=== PATIENT | female | born 1975 | race African-American/Black ===

== ENCOUNTER 2021-01-06 09:55 | Inpatient (IN) ==
[2021-01-06 11:24] LABS: Basophils % 0.2 % (0.0-0.8); Eosinophils # 0.1 10*3/uL (0.0-0.87); Eosinophils % 0.4 % (0.00-10.9); Hematocrit 39.5 VOL% (35.7-47.0); Hemoglobin 12.7 GM/DL (12.0-16.0); Immature Granulocytes % 0.4 %; Immature Granulocytes Absolute 0.08 #; Lymphocytes # 2.7 10*3/uL (1.4-4.0); Lymphocytes % 14.4 % (21.3-54.2); Mean Corpuscular HGB Conc 32.2 GM/DL (32-36); Mean Corpuscular Volume 90.8 FL (87-102); Mean Platelet Volume 10.7 FL (9.6-12.0); Monocytes % 8.1 % (1.7-12.7); Neutrophils % 76.5 % (38.7-73.9); Platelet Count 285 T/CUMM (130-400); Red Blood Count 4.35 MC/CUMM (3.8-5.5); Red Cell Distribution Width 17.3 % (9.3-17.3); White Blood Count 19.1 T/CUMM (4-12)
[2021-01-06 11:45] LABS: Bilirubin,Urine Negative (Negative); Blood, Urine Negative (Negative); Glucose,Urine (UA) 50 mg/dL (Negative); Ketones,Urine Negative (Negative); Mucus,Urine Many /LPF (Occasional); Nitrite,Urine Negative (Negative); Protein,Urine 100 MG/DL; RBC,Urine 1 /HPF (0-4); Squamous Epithelial Cell,Urine Occasional /HPF (0-10); Urine Appearance CLEAR (Clear); Urine Color Amber (Yellow); Urine Specific Gravity 1.028 (1.001-1.035)
[2021-01-06 11:45] LABS: Alanine Aminotransferase 29 U/L (13-56); Alkaline Phosphatase 165 U/L (45-117); Aspartate Amino Transferase 19 U/L (0-37); Blood Urea Nitrogen 6 MG/DL (7-18); Calcium 9.1 MG/DL (8.5-10.1); Carbon Dioxide 26 MMOL/L (21-32); Estimated Glom Filtration Rate 159 ML/MIN; Glucose 175 MG/DL (74-106); Potassium 3.9 MMOL/L (3.5-5.1); Sodium 136 MMOL/L (136-145); Total Protein 8.1 G/DL (6.4-8.2)
[2021-01-06] MEDS ORDERED: SODIUM CHLORIDE 0.9% 1,000 ML IV STA (11:55)
[2021-01-06] MEDS ORDERED: VANCOMYCIN INJ 1,000 MG in SODIUM CHLORIDE 0.9% 250 ML IV STA (11:57)
[2021-01-06] MEDS ORDERED: DEXTROSE 50% 25 GM/50 ML VIAL IV PRN ×2 (12:36)
[2021-01-06] MEDS ORDERED: GLUCAGON 1 MG VIAL IM PRN (12:36)
[2021-01-06] MEDS ORDERED: hydrALAZINE 20 MG/1 ML VIAL IV PRN (12:36)
[2021-01-06] MEDS ORDERED: ONDANSETRON 4 MG/2 ML VIAL IV PRN (12:36)
[2021-01-06] MEDS ORDERED: NICOTINE 21 MG/24 HR PATCH TRANSDERM PRN (13:34)
[2021-01-06] MEDS: INSULIN LISPRO 100 UNIT/ML SUBCUT SCH ×2 (17:04→20:58)
[2021-01-06] MEDS: SODIUM HYPOCHLORITE 0.25% IRRIG 473 ML BOTTLE TOP SCH (17:04)
[2021-01-06] MEDS: VANCOMYCIN INJ 1,500 MG in SODIUM CHLORIDE 0.9% 500 ML IV SCH (22:56)
[2021-01-07] MEDS ORDERED: VANCOMYCIN INJ 1,000 MG in SODIUM CHLORIDE 0.9% 250 ML IV SCH (00:01)
[2021-01-07 05:04] LABS: Basophils % 0.2 % (0.0-0.8); Eosinophils # 0.2 10*3/uL (0.0-0.87); Eosinophils % 1.4 % (0.00-10.9); Hematocrit 34.2 VOL% (35.7-47.0); Hemoglobin 11.2 GM/DL (12.0-16.0); Immature Granulocytes % 0.3 %; Immature Granulocytes Absolute 0.04 #; Lymphocytes # 2.9 10*3/uL (1.4-4.0); Lymphocytes % 22.5 % (21.3-54.2); Mean Corpuscular HGB Conc 32.7 GM/DL (32-36); Mean Corpuscular Volume 90.2 FL (87-102); Mean Platelet Volume 10.8 FL (9.6-12.0); Monocytes % 9.2 % (1.7-12.7); Neutrophils % 66.4 % (38.7-73.9); Platelet Count 248 T/CUMM (130-400); Red Blood Count 3.79 MC/CUMM (3.8-5.5); Red Cell Distribution Width 17.4 % (9.3-17.3); White Blood Count 12.9 T/CUMM (4-12)
[2021-01-07 05:25] LABS: Calcium 8.1 MG/DL (8.5-10.1); Potassium 3.6 MMOL/L (3.5-5.1)
[2021-01-07] MEDS: INSULIN LISPRO 100 UNIT/ML SUBCUT SCH ×4 (09:48→20:22)
[2021-01-07] MEDS: SODIUM HYPOCHLORITE 0.25% IRRIG 473 ML BOTTLE TOP SCH (09:49)
[2021-01-07] MEDS: PANTOPRAZOLE 40 MG TABLET PO SCH (09:49)
[2021-01-07] MEDS ORDERED: LACTATED RINGERS 1,000 ML IV SCH (10:00)
[2021-01-07] MEDS ORDERED: fentaNYL 100 MCG/2 ML VIAL ONE (10:09)
[2021-01-07] MEDS ORDERED: MIDAZOLAM 2 MG/2 ML VIAL ONE (10:09)
[2021-01-07] MEDS ORDERED: propofoL 200 MG/20 ML VIAL IV ONE (10:10)
[2021-01-07] MEDS ORDERED: LIDOCAINE 2% 5 ML VIAL ONE (10:10)
[2021-01-07] MEDS ORDERED: BUPIVACAINE MPF 0.25% 30 ML VIAL ONE (10:23)
[2021-01-07] MEDS ORDERED: LIDOCAINE 1% 20 ML VIAL ONE (10:23)
[2021-01-07] MEDS ORDERED: ETOMIDATE 40 MG/20 ML VIAL IV ONE (10:33)
[2021-01-07] MEDS ORDERED: ONDANSETRON 4 MG/2 ML VIAL ONE (10:59)
[2021-01-07] MEDS: VANCOMYCIN INJ 1,500 MG in SODIUM CHLORIDE 0.9% 500 ML IV SCH ×2 (12:05→18:54)
[2021-01-07] MEDS ORDERED: DEXTROSE 50% 25 GM/50 ML VIAL IV PRN (12:47)
[2021-01-07] MEDS ORDERED: GLUCAGON 1 MG VIAL IM PRN (12:47)
[2021-01-08] MEDS: VANCOMYCIN INJ 1,500 MG in SODIUM CHLORIDE 0.9% 500 ML IV SCH (06:17)
[2021-01-08 07:08] LABS: Basophils % 0.2 % (0.0-0.8); Eosinophils # 0.1 10*3/uL (0.0-0.87); Eosinophils % 1.1 % (0.00-10.9); Hematocrit 34.1 VOL% (35.7-47.0); Hemoglobin 10.8 GM/DL (12.0-16.0); Immature Granulocytes % 0.4 %; Immature Granulocytes Absolute 0.05 #; Lymphocytes # 2.7 10*3/uL (1.4-4.0); Lymphocytes % 20.9 % (21.3-54.2); Mean Corpuscular HGB Conc 31.7 GM/DL (32-36); Mean Corpuscular Volume 90.9 FL (87-102); Mean Platelet Volume 11.6 FL (9.6-12.0); Neutrophils % 68.4 % (38.7-73.9); Platelet Count 260 T/CUMM (130-400); Red Blood Count 3.75 MC/CUMM (3.8-5.5); Red Cell Distribution Width 17.2 % (9.3-17.3)
[2021-01-08 07:15] LABS: Calcium 8.4 MG/DL (8.5-10.1); Osmolality,Calculated 273.1 MOS/KG (273-304); Potassium 3.8 MMOL/L (3.5-5.1)
[2021-01-08] MEDS: PANTOPRAZOLE 40 MG TABLET PO SCH (08:53)
[2021-01-08] MEDS: INSULIN LISPRO 100 UNIT/ML SUBCUT SCH ×2 (08:53→12:18)
[2021-01-08] MEDS ORDERED: METOPROLOL SUCCINATE XL 50 MG TABLET PO SCH (09:00)
[2021-01-08] MEDS ORDERED: predniSONE 5 MG TABLET PO SCH (09:00)
[2021-01-08] MEDS ORDERED: FOLIC ACID 1 MG TABLET PO SCH (09:00)
[2021-01-08] MEDS: SODIUM HYPOCHLORITE 0.25% IRRIG 473 ML BOTTLE TOP SCH (10:48)
[2021-01-08 12:12] VITALS: BP 121/85
== END 2021-01-08 15:52 | disposition home or self-care (01) | DRG 197 ==
LOC: N.ED 09:55 → SUATTDRO 12:36 → N.EDINP 12:36 → N.3E 14:31
PROVIDERS: ADMIT Internal Medicine; ATTEND Internal Medicine

== ENCOUNTER 2021-02-17 13:07 | Inpatient (IN) ==
[2021-02-17] MEDS ORDERED: VANCOMYCIN INJ 1,000 MG in SODIUM CHLORIDE 0.9% 500 ML IV SCH (16:09)
[2021-02-17] MEDS ORDERED: ACETAMINOPHEN 325 MG TABLET PO PRN (16:09)
[2021-02-17] MEDS ORDERED: PROMETHAZINE 25 MG/1 ML VIAL IM PRN (16:09)
[2021-02-17] MEDS ORDERED: ONDANSETRON 4 MG/2 ML VIAL IV PRN (16:09)
[2021-02-17 16:46] LABS: Basophils # 0.1 10*3/uL (0.0-0.2); Basophils % 0.3 % (0.0-0.8); Eosinophils # 0.1 10*3/uL (0.0-0.87); Eosinophils % 0.7 % (0.00-10.9); Hematocrit 33.2 VOL% (35.7-47.0); Hemoglobin 10.4 GM/DL (12.0-16.0); Immature Granulocytes % 0.6 %; Immature Granulocytes Absolute 0.09 #; Lymphocytes # 3.1 10*3/uL (1.4-4.0); Mean Corpuscular HGB Conc 31.3 GM/DL (32-36); Mean Corpuscular Volume 88.8 FL (87-102); Mean Platelet Volume 9.9 FL (9.6-12.0); Monocytes % 6.9 % (1.7-12.7); Neutrophils % 72.5 % (38.7-73.9); Platelet Count 377 T/CUMM (130-400); Red Blood Count 3.74 MC/CUMM (3.8-5.5); Red Cell Distribution Width 16.7 % (9.3-17.3); White Blood Count 16.3 T/CUMM (4-12)
[2021-02-17 17:05] LABS: Calcium 8.7 MG/DL (8.5-10.1); Osmolality,Calculated 270.1 MOS/KG (273-304); Potassium 3.5 MMOL/L (3.5-5.1)
[2021-02-17] MEDS: LACTATED RINGERS 1,000 ML IV SCH (18:22)
[2021-02-17] MEDS: PIPERACILLIN/TAZOBACTAM 3,375 MG in SODIUM CHLORIDE 0.9% 100 ML IV SCH (18:27)
[2021-02-17] MEDS: VANCOMYCIN INJ 1,250 MG in SODIUM CHLORIDE 0.9% 250 ML IV SCH (22:49)
[2021-02-18] MEDS: PIPERACILLIN/TAZOBACTAM 3,375 MG in SODIUM CHLORIDE 0.9% 100 ML IV SCH ×3 (02:19→17:41)
[2021-02-18] MEDS: LACTATED RINGERS 1,000 ML IV SCH ×3 (02:53→17:45)
[2021-02-18 04:52] LABS: Basophils % 0.2 % (0.0-0.8); Eosinophils # 0.1 10*3/uL (0.0-0.87); Hemoglobin 9.8 GM/DL (12.0-16.0); Immature Granulocytes % 0.5 %; Immature Granulocytes Absolute 0.06 #; Lymphocytes # 2.3 10*3/uL (1.4-4.0); Lymphocytes % 20.5 % (21.3-54.2); Mean Corpuscular HGB Conc 31.6 GM/DL (32-36); Mean Corpuscular Volume 87.6 FL (87-102); Monocytes % 7.9 % (1.7-12.7); Neutrophils % 69.9 % (38.7-73.9); Platelet Count 337 T/CUMM (130-400); Red Blood Count 3.54 MC/CUMM (3.8-5.5); Red Cell Distribution Width 16.3 % (9.3-17.3); White Blood Count 11.4 T/CUMM (4-12)
[2021-02-18 05:08] LABS: Calcium 8.1 MG/DL (8.5-10.1); Potassium 3.6 MMOL/L (3.5-5.1)
[2021-02-18] MEDS: ENOXAPARIN 40 MG/0.4 ML SYRINGE SUBCUT SCH (09:00)
[2021-02-18] MEDS: PANTOPRAZOLE 40 MG TABLET PO SCH (09:00)
[2021-02-18] MEDS: VANCOMYCIN INJ 1,250 MG in SODIUM CHLORIDE 0.9% 250 ML IV SCH ×2 (12:55→21:55)
[2021-02-18] MEDS: GABAPENTIN 400 MG CAPSULE PO SCH ×2 (15:43→21:52)
[2021-02-18] MEDS: SACUBITRIL/VALSARTAN 49-51 MG TABLET PO SCH (21:52)
[2021-02-18] MEDS: ATORVASTATIN 40 MG TABLET PO SCH (21:52)
[2021-02-19] MEDS: PIPERACILLIN/TAZOBACTAM 3,375 MG in SODIUM CHLORIDE 0.9% 100 ML IV SCH ×3 (03:25→16:20)
[2021-02-19 05:59] LABS: Basophils % 0.2 % (0.0-0.8); Eosinophils # 0.1 10*3/uL (0.0-0.87); Hematocrit 30.2 VOL% (35.7-47.0); Hemoglobin 9.7 GM/DL (12.0-16.0); Immature Granulocytes % 0.4 %; Immature Granulocytes Absolute 0.05 #; Lymphocytes # 2.5 10*3/uL (1.4-4.0); Lymphocytes % 21.2 % (21.3-54.2); Mean Corpuscular HGB Conc 32.1 GM/DL (32-36); Mean Corpuscular Volume 87.5 FL (87-102); Mean Platelet Volume 10.2 FL (9.6-12.0); Monocytes % 8.1 % (1.7-12.7); Neutrophils % 69.1 % (38.7-73.9); Platelet Count 341 T/CUMM (130-400); Red Blood Count 3.45 MC/CUMM (3.8-5.5); Red Cell Distribution Width 16.1 % (9.3-17.3); White Blood Count 11.6 T/CUMM (4-12)
[2021-02-19 06:21] LABS: Calcium 8.3 MG/DL (8.5-10.1); Osmolality,Calculated 273.1 MOS/KG (273-304); Potassium 3.8 MMOL/L (3.5-5.1)
[2021-02-19] MEDS: GABAPENTIN 400 MG CAPSULE PO SCH ×3 (09:08→20:49)
[2021-02-19] MEDS: predniSONE 5 MG TABLET PO SCH (09:08)
[2021-02-19] MEDS: PANTOPRAZOLE 40 MG TABLET PO SCH (09:08)
[2021-02-19] MEDS: METOPROLOL SUCCINATE XL 50 MG TABLET PO SCH (09:08)
[2021-02-19] MEDS: SACUBITRIL/VALSARTAN 49-51 MG TABLET PO SCH ×2 (09:08→20:49)
[2021-02-19] MEDS: FOLIC ACID 1 MG TABLET PO SCH (09:08)
[2021-02-19] MEDS: ENOXAPARIN 40 MG/0.4 ML SYRINGE SUBCUT SCH (09:08)
[2021-02-19] MEDS ORDERED: GLUCAGON 1 MG VIAL IM PRN (11:13)
[2021-02-19] MEDS ORDERED: DEXTROSE 50% 25 GM/50 ML VIAL IV PRN (11:13)
[2021-02-19] MEDS: INSULIN REGULAR 100 UNIT/ML SUBCUT SCH ×3 (12:25→20:51)
[2021-02-19] MEDS: VANCOMYCIN INJ 1,250 MG in SODIUM CHLORIDE 0.9% 250 ML IV SCH ×2 (13:03→21:56)
[2021-02-19] MEDS: ATORVASTATIN 40 MG TABLET PO SCH (20:49)
[2021-02-20] MEDS: PIPERACILLIN/TAZOBACTAM 3,375 MG in SODIUM CHLORIDE 0.9% 100 ML IV SCH ×3 (00:07→17:42)
[2021-02-20] MEDS: LACTATED RINGERS 1,000 ML IV SCH (00:21)
[2021-02-20] MEDS: VANCOMYCIN INJ 1,250 MG in SODIUM CHLORIDE 0.9% 250 ML IV SCH ×3 (04:22→22:10)
[2021-02-20 04:37] LABS: Basophils % 0.2 % (0.0-0.8); Eosinophils # 0.1 10*3/uL (0.0-0.87); Hematocrit 30.9 VOL% (35.7-47.0); Immature Granulocytes % 0.4 %; Immature Granulocytes Absolute 0.05 #; Lymphocytes # 2.6 10*3/uL (1.4-4.0); Lymphocytes % 20.2 % (21.3-54.2); Mean Corpuscular HGB Conc 32.4 GM/DL (32-36); Mean Corpuscular Volume 87.5 FL (87-102); Mean Platelet Volume 9.9 FL (9.6-12.0); Monocytes % 9.1 % (1.7-12.7); Neutrophils % 69.1 % (38.7-73.9); Platelet Count 335 T/CUMM (130-400); Red Blood Count 3.53 MC/CUMM (3.8-5.5); Red Cell Distribution Width 15.9 % (9.3-17.3); White Blood Count 13.1 T/CUMM (4-12)
[2021-02-20 04:57] LABS: Calcium 8.3 MG/DL (8.5-10.1); Osmolality,Calculated 265.1 MOS/KG (273-304); Potassium 3.7 MMOL/L (3.5-5.1)
[2021-02-20] MEDS: ENOXAPARIN 40 MG/0.4 ML SYRINGE SUBCUT SCH (09:22)
[2021-02-20] MEDS: INSULIN REGULAR 100 UNIT/ML SUBCUT SCH ×4 (09:23→20:37)
[2021-02-20] MEDS: SACUBITRIL/VALSARTAN 49-51 MG TABLET PO SCH ×2 (09:23→20:36)
[2021-02-20] MEDS: METOPROLOL SUCCINATE XL 50 MG TABLET PO SCH (09:30)
[2021-02-20] MEDS: FOLIC ACID 1 MG TABLET PO SCH (09:30)
[2021-02-20] MEDS: predniSONE 5 MG TABLET PO SCH (09:30)
[2021-02-20] MEDS: PANTOPRAZOLE 40 MG TABLET PO SCH (09:30)
[2021-02-20] MEDS: GABAPENTIN 400 MG CAPSULE PO SCH ×3 (09:30→20:36)
[2021-02-20] MEDS: ATORVASTATIN 40 MG TABLET PO SCH (20:36)
[2021-02-21] MEDS: PIPERACILLIN/TAZOBACTAM 3,375 MG in SODIUM CHLORIDE 0.9% 100 ML IV SCH ×2 (00:06→10:04)
[2021-02-21] MEDS: VANCOMYCIN INJ 1,250 MG in SODIUM CHLORIDE 0.9% 250 ML IV SCH (04:47)
[2021-02-21] MEDS: INSULIN REGULAR 100 UNIT/ML SUBCUT SCH ×2 (08:14→12:13)
[2021-02-21] MEDS ORDERED: METHOTREXATE 2.5 MG TABLET PO SCH (09:00)
[2021-02-21] MEDS: predniSONE 5 MG TABLET PO SCH (09:54)
[2021-02-21] MEDS: METOPROLOL SUCCINATE XL 50 MG TABLET PO SCH (09:54)
[2021-02-21] MEDS: ENOXAPARIN 40 MG/0.4 ML SYRINGE SUBCUT SCH (09:54)
[2021-02-21] MEDS: GABAPENTIN 400 MG CAPSULE PO SCH (09:54)
[2021-02-21] MEDS: SACUBITRIL/VALSARTAN 49-51 MG TABLET PO SCH (09:54)
[2021-02-21] MEDS: FOLIC ACID 1 MG TABLET PO SCH (09:54)
[2021-02-21] MEDS: PANTOPRAZOLE 40 MG TABLET PO SCH (09:54)
[2021-02-21] MEDS ORDERED: CEFEPIME 2,000 MG in SODIUM CHLORIDE 0.9% 100 ML IV SCH (10:00)
[2021-02-21 12:00] VITALS: BP 142/69
== END 2021-02-21 14:35 | disposition home health service (06) | DRG 383 ==
LOC: N.3E → OBSVTOIN 14:52
PROVIDERS: ADMIT Surgery; ATTEND Surgery

== ENCOUNTER 2021-11-21 08:12 | Inpatient (IN) ==
[2021-11-21] MEDS ORDERED: VANCOMYCIN INJ 1,500 MG in SODIUM CHLORIDE 0.9% 500 ML IV STA (08:57)
[2021-11-21] MEDS ORDERED: HYDROmorphone 1 MG/1 ML SYRINGE IV STA (08:58)
[2021-11-21] MEDS ORDERED: PIPERACILLIN/TAZOBACTAM 3,375 MG in SODIUM CHLORIDE 0.9% 100 ML IV STA (08:58)
[2021-11-21] MEDS ORDERED: ONDANSETRON 4 MG/2 ML VIAL IV STA (08:58)
[2021-11-21] MEDS ORDERED: SODIUM CHLORIDE 0.9% 500 ML IV STA (08:58)
[2021-11-21 09:51] LABS: Basophils % 0.2 % (0.0-0.8); Eosinophils # 0.1 10*3/uL (0.0-0.87); Eosinophils % 0.6 % (0.00-10.9); Hematocrit 36.8 VOL% (35.7-47.0); Hemoglobin 11.7 GM/DL (12.0-16.0); Immature Granulocytes % 0.5 %; Immature Granulocytes Absolute 0.09 #; Lymphocytes # 2.6 10*3/uL (1.4-4.0); Lymphocytes % 14.4 % (21.3-54.2); Mean Corpuscular HGB Conc 31.8 GM/DL (32-36); Mean Corpuscular Volume 84.4 FL (87-102); Mean Platelet Volume 10.9 FL (9.6-12.0); Neutrophils % 77.3 % (38.7-73.9); Platelet Count 324 T/CUMM (130-400); Red Blood Count 4.36 MC/CUMM (3.8-5.5); Red Cell Distribution Width 16.8 % (9.3-17.3); White Blood Count 17.9 T/CUMM (4-12)
[2021-11-21] MEDS ORDERED: ONDANSETRON 4 MG/2 ML VIAL IV PRN ×2 (09:54→13:36)
[2021-11-21] MEDS ORDERED: HYDROmorphone 1 MG/1 ML SYRINGE IV PRN ×3 (09:54→13:36)
[2021-11-21] MEDS ORDERED: ALBUTEROL/IPRATROPIUM 3 ML NEB RESP TX PRN (09:54)
[2021-11-21] MEDS ORDERED: BISACODYL 5 MG TABLET PO PRN (09:54)
[2021-11-21] MEDS ORDERED: ACETAMINOPHEN 325 MG TABLET PO PRN (09:54)
[2021-11-21 10:02] LABS: PT Patient Result 11.6 SECS (10.5-12.0); Partial Thromboplastin Time 26.5 SECS (23.8-32.1)
[2021-11-21 10:57] LABS: Sedimentation Rate-Westergren 74 MM/HR (0-20)
[2021-11-21 11:00] LABS: Albumin 2.5 G/DL (3.4-5.0); Bilirubin,Total 0.8 MG/DL (0.20-1.00); Osmolality,Calculated 277.5 MOS/KG (273-304); Potassium 4.3 MMOL/L (3.5-5.1); Total Protein 7.5 G/DL (6.4-8.2)
[2021-11-21] MEDS ORDERED: GLUCAGON 1 MG VIAL IM PRN ×2 (11:55→14:29)
[2021-11-21] MEDS ORDERED: BUPIVACAINE MPF 0.25% 30 ML VIAL ONE (12:03)
[2021-11-21] MEDS ORDERED: LIDOCAINE 1%/EPI INJ 20 ML VIAL ONE (12:04)
[2021-11-21] MEDS ORDERED: LIDOCAINE 1% 50 ML VIAL ONE (12:04)
[2021-11-21] MEDS ORDERED: LIDOCAINE 2% 5 ML VIAL ONE (12:46)
[2021-11-21] MEDS ORDERED: ONDANSETRON 4 MG/2 ML VIAL ONE (12:46)
[2021-11-21] MEDS ORDERED: propofoL 200 MG/20 ML VIAL IV ONE (12:46)
[2021-11-21] MEDS ORDERED: SEVOFLURANE 1 UNIT/15 MINUTE INH ONE (12:46)
[2021-11-21] MEDS ORDERED: DEXAMETHASONE 4 MG/1 ML VIAL ONE (12:46)
[2021-11-21] MEDS ORDERED: ACETAMINOPHEN INJ 1,000 MG/100 ML VIAL IV ONE (12:47)
[2021-11-21] MEDS ORDERED: KETOROLAC 30 MG/1 ML VIAL ONE (12:47)
[2021-11-21] MEDS ORDERED: MIDAZOLAM 2 MG/2 ML VIAL ONE (12:47)
[2021-11-21] MEDS ORDERED: DEXTROSE 10% 250 ML BAG IV PRN (13:09)
[2021-11-21] MEDS ORDERED: DEXTROSE 50% 25 GM/50 ML VIAL IV PRN (14:29)
[2021-11-21] MEDS: LACTATED RINGERS 1,000 ML IV SCH ×2 (14:59→21:16)
[2021-11-21] MEDS: INSULIN LISPRO 100 UNIT/ML SUBCUT SCH ×2 (15:12→17:16)
[2021-11-21] MEDS: PIPERACILLIN/TAZOBACTAM 3,375 MG in SODIUM CHLORIDE 0.9% 100 ML IV SCH (17:18)
[2021-11-22] MEDS: VANCOMYCIN INJ 1,250 MG in SODIUM CHLORIDE 0.9% 250 ML IV SCH ×2 (01:02→12:18)
[2021-11-22] MEDS: PIPERACILLIN/TAZOBACTAM 3,375 MG in SODIUM CHLORIDE 0.9% 100 ML IV SCH ×3 (02:17→16:27)
[2021-11-22 06:07] LABS: Basophils % 0.2 % (0.0-0.8); Eosinophils % 0.1 % (0.00-10.9); Hematocrit 33.2 VOL% (35.7-47.0); Hemoglobin 10.7 GM/DL (12.0-16.0); Immature Granulocytes % 0.5 %; Immature Granulocytes Absolute 0.08 #; Lymphocytes # 2.3 10*3/uL (1.4-4.0); Lymphocytes % 13.1 % (21.3-54.2); Mean Corpuscular HGB Conc 32.2 GM/DL (32-36); Mean Corpuscular Volume 84.3 FL (87-102); Mean Platelet Volume 10.5 FL (9.6-12.0); Monocytes % 7.9 % (1.7-12.7); Neutrophils % 78.2 % (38.7-73.9); Platelet Count 305 T/CUMM (130-400); Red Blood Count 3.94 MC/CUMM (3.8-5.5); Red Cell Distribution Width 16.5 % (9.3-17.3); White Blood Count 17.5 T/CUMM (4-12)
[2021-11-22] MEDS: LACTATED RINGERS 1,000 ML IV SCH ×2 (06:08→18:34)
[2021-11-22 06:31] LABS: Calcium 8.5 MG/DL (8.5-10.1); Osmolality,Calculated 277.2 MOS/KG (273-304); Potassium 3.7 MMOL/L (3.5-5.1)
[2021-11-22] MEDS: PANTOPRAZOLE 40 MG TABLET PO SCH (08:41)
[2021-11-22] MEDS: INSULIN LISPRO 100 UNIT/ML SUBCUT SCH ×3 (08:42→16:25)
[2021-11-22] MEDS ORDERED: HYDROmorphone 2 MG/1 ML VIAL IV PRN (10:30)
[2021-11-23] MEDS: VANCOMYCIN INJ 1,250 MG in SODIUM CHLORIDE 0.9% 250 ML IV SCH ×2 (00:21→13:26)
[2021-11-23] MEDS: LACTATED RINGERS 1,000 ML IV SCH ×2 (01:22→11:30)
[2021-11-23] MEDS: PIPERACILLIN/TAZOBACTAM 3,375 MG in SODIUM CHLORIDE 0.9% 100 ML IV SCH ×2 (01:22→08:42)
[2021-11-23] MEDS: INSULIN LISPRO 100 UNIT/ML SUBCUT SCH ×2 (08:41→13:00)
[2021-11-23] MEDS: PANTOPRAZOLE 40 MG TABLET PO SCH (08:41)
[2021-11-23 14:06] VITALS: BP 151/78
== END 2021-11-23 13:54 | disposition home health service (06) | DRG 951 ==
LOC: N.ED 08:12 → N.EDINP 09:54 → N.3E 14:21
PROVIDERS: ADMIT Student in an Organized Health Care Education/Training Program; ATTEND Student in an Organized Health Care Education/Training Program